=== PATIENT | male | born 1935 | race Caucasian/White ===

== ENCOUNTER 2016-07-08 01:42 | Day surgery (SDC) | payer MEDICARE ==
[2016-07-08] VITALS (10 sets, daily range): BP systolic 101–135; BP diastolic 53–89; PULSE 58–67; RESP 11–60; O2SAT 93–98
[~2016-07-08] VITALS: Ht 172.7 cm; Wt 92.0 kg
[~2016-07-08 01:42] MED LIST: ALBU8.5H4 IH; BECL8.7A5 IH; CALC500T3 PO; CLOP75TA3 PO; COLC0.6C3 PO; FLUO10TA PO; IPRA30SP8 NS; LEVO5TAB13 PO; LIP40 PO; LOSA25TA21 PO; METO50TA7 PO; METR55GE TOP; MV-M1TAB2 PO; POTA10CA42 PO; SPIR25TA3 PO; TORS20TA PO; UBID100C25 PO
[2016-07-08] MEDS ORDERED: 0.9% Sodium Chloride 1,000 ML IV PRN (07:19)
[2016-07-08] MEDS ORDERED: Vancomycin Inj 1,000 MG in IV Premix 1 EACH IV ONE (07:20)
--- NOTE | 2016-07-08 11:00 | NUR ---
ADMISSION NOTE MALE PT ADMITTED FOR ICD GENERATOR CHANGE. DISCUSSED PLAN OF CARE WITH PT AND . SEE ADMIT AND FLOW SHEET
[2016-07-08 11:37] LABS: BASOPHILS % (AUTO) 0.4 % (0-3); MONOCYTES % (AUTO) 8.5 % (4-12); Mean Corpuscular Hemoglobin 33.8 pg (27.0-35.0); Mean Corpuscular Volume 99.3 fL (81-100); NEUTROPHILS % (AUTO) 65.5 % (40-74); Platelet Count 194 bil/L (150-400)
[2016-07-08] MEDS ORDERED: TORS20TA3 PO (11:47)
[2016-07-08 12:01] LABS: INR 1.05 ratio
[2016-07-08] MEDS ORDERED: Vancomycin 1,000 mg Inj ONE (12:58)
[2016-07-08] MEDS ORDERED: Heparin 5,000 Units/500 mL NS Premix IV ONE (12:58)
[2016-07-08] MEDS ORDERED: Water for Injection 50 ML IV ONE (12:58)
[2016-07-08] MEDS ORDERED: Bupivacaine-MPF 0.5% 30 mL Inj ONE (12:58)
[2016-07-08] MEDS ORDERED: 0.9% Sodium Chloride 250 ML ONE (12:58)
[2016-07-08] MEDS ORDERED: Vancomycin 1,000mg/200 mL NS IV ONE (13:00)
[2016-07-08] MEDS ORDERED: fentaNYL-PF 50 mCg/mL 2 mL Inj ONE (13:21)
[2016-07-08] MEDS ORDERED: Ondansetron 2 mg/mL 2 mL Inj IVPUSH PRN (14:25)
[2016-07-08] MEDS ORDERED: 0.9% Sodium Chloride 1,000 ML IV SCH (14:25)
--- NOTE | 2016-07-08 14:30 | NUR ---
POST PROCEDURE NOTE RETURNED FROM PHARMACY DIRECTOR. SEE FLOW SHEET
--- NOTE | 2016-07-08 15:05 | OP ---
[address] [address] OPERATIVE REPORT PATIENT: DAYANARA PECK : 1935 MR#: [id number] ADMIT: 07/08/2016 JOB ID: [id number] DATE OF SURGERY: 07/08/2016 PREOPERATIVE DIAGNOSIS(ES): Implantable cardioverter defibrillator battery depletion. POSTOPERATIVE DIAGNOSIS(ES): Implantable cardioverter defibrillator battery depletion. PROCEDURES PERFORMED: Multilead implantable cardioverter defibrillator generator replacement. SURGEON: Gabriel Casarez MD, electrophysiology attending. ASSISTANTS: 1. Maryann Jones MD, interventional cardiology attending. 2. Carol . IMPLANTED DEVICE: Medtronic Amplia MRI pulse generator model LCGI5I9, serial #[id number]. EXPLANTED DEVICE: Medtronic Protecta RADIOLOGY SERVICES MANAGER-D model D798CRQ, serial #[id number]. CHRONIC DEVICES: 1. Right atrial lead Medtronic 5076, 52 cm, serial #[id number]. 2. RV lead Medtronic 6935, 58 cm, serial #[id number]. 3. LV lead Medtronic 4196, 88 cm, serial #[id number]. ANESTHESIA: Bolus dosing of Versed and fentanyl were utilized for appropriate level of sedation. INDICATIONS: The patient is a pleasant 80-year-old man with ischemic heart disease, bypass grafting, severe ischemic cardiomyopathy whose BiV ICD has reached KATHIE. After discussion of risks and benefits of generator replacement, he opted to proceed. PROCEDURAL DESCRIPTION: Following informed signed consent, the patient was taken to the EP laboratory in a fasting, nonsedated state, where he was prepped and draped in the usual sterile fashion. The left infraclavicular surgical scar was infiltrated with 40 cc of a 50/50 mixture of bupivacaine and lidocaine. Once adequate anesthesia had been achieved, a 3 cm incision was performed overlying the previous surgical scar. Dissection was carried down to the capsule, and the generator and leads were freed loose of adhesions. The pocket was copiously irrigated with antibiotic solution. The leads were disconnected from the generator and inspected. They were showed to be intact. The chronic leads were connected to a new generator. The leads were tested through the generator and showed excellent sensing, thresholds and impedances. The entire system was then replaced into the capsule. The incision was closed with running layers of absorbable suture. The wound was dressed with skin adhesive and a small dressing. At the end of the procedure, the needle, sponge and instrument counts were all correct. COMPLICATIONS: None. ESTIMATED BLOOD LOSS: Negligible. DEVICE MEASURED DATA: 1. Right atrial lead 3.8 mV, 513 ohms, 0.75 V at 0.4 msec. 2. RV lead 10.8 mV, integrated bipolar 323 ohms, 72 ohms, 0.5 V at 0.4 msec. 3. LV lead 456 ohms, 0.75 V at 0.4 msec. FINAL PROGRAM PARAMETERS: 1. DDD 60-130 beats per minute. 2. VF zone at 300 msec . 3. Fast VT via VF of 260 msec. 4. VT monitoring zone at 150 beats per minute. IMPRESSION: Successful biventricular implantable cardioverter defibrillator generator replacement. PLAN: 1. Recovery and discharge from the [facility]. 2. Doxycycline 100 mg p.o. daily x1 week. 3. Device Clinic in one week. 4. [facility] in six weeks. ATTENDING STATEMENT: Gabriel Casarez MD, electrophysiology attending, was present for and supervised/performed all aspects of this procedure.
--- NOTE | 2016-07-08 17:03 | NUR ---
[facility] DISCHARGE ASSUMED CARE OF PT AT 1600. DISCHARGE INSTRUCTIONS INCLUDING MEDICATIONS, F/U, POST SEDATION AND GENERATOR CHANGE INSTRUCTIONS WERE REVIEWED AND PT AND VERBALIZED UNDERSTANDING. RX WAS FAXED TO [facility] PER PT REQUEST AND HARD COPY WITH PT. IVS WERE DISCONTINUED AND PT WAS DISCHARGED AT 1655 WITH IN STABLE CONDITION.
== END 2016-07-08 23:59 | disposition home or self-care (01) ==
LOC: SOUO 01:42
PROVIDERS: ATTEND Internal Medicine Cardiovascular Disease
DX: Z45.02 Encounter for adjustment and management of automatic implantable cardiac defibrillator (principal); Z95.1 Presence of aortocoronary bypass graft; I25.5 Ischemic cardiomyopathy; I50.22 Chronic systolic (congestive) heart failure; I25.10 Atherosclerotic heart disease of native coronary artery without angina pectoris; I25.810 Atherosclerosis of coronary artery bypass graft(s) without angina pectoris; I35.1 Nonrheumatic aortic (valve) insufficiency; I37.1 Nonrheumatic pulmonary valve insufficiency; E11.9 Type 2 diabetes mellitus without complications; I10 Essential (primary) hypertension; I27.2 Other secondary pulmonary hypertension; Z79.02 Long term (current) use of antithrombotics/antiplatelets; Z86.73 Personal history of transient ischemic attack (TIA), and cerebral infarction without residual deficits
CPT/HCPCS: 33264; 36415; 80048; 85025; 85610; 93005; 99152; 99153; C1769; C1882; J1644; J2250; J3010; J3370; J7050

== ENCOUNTER 2016-07-22 00:56 | Day surgery (SDC) | payer MEDICARE ==
[~2016-07-22] VITALS: Ht 172.7 cm; Wt 90.0 kg
[2016-07-22] VITALS (18 sets, daily range): BP systolic 104–129; BP diastolic 60–90; PULSE 63–120; RESP 12–20; O2SAT 95–98
[~2016-07-22 00:56] MED LIST changes: -COLC0.6C3 PO; -IPRA30SP8 NS; -LEVO5TAB13 PO; -TORS20TA PO; +TORS20TA3 PO
--- NOTE | 2016-07-22 08:15 | NUR ---
ADMISSION NOTE MALE PT ADMITTED FOR SHADE/CARDIOVERSION DISCUSSED PLAN OF CARE WITH PT AND FAMILY. SEE ADMIT AND FLOW SHEET
--- NOTE | 2016-07-22 09:00 | NUR ---
DR SHAFFER HERE. SEE SEDATION FLOW SHEET
[2016-07-22] MEDS ORDERED: 0.9% Sodium Chloride 100 ML ONE (09:02)
[2016-07-22] MEDS ORDERED: fentaNYL-PF 50 mCg/mL 2 mL Inj ONE ×2 (09:04→14:54)
[2016-07-22] MEDS ORDERED: Flumazenil 0.1 mg/mL 5 mL Inj IV ONE (09:04)
[2016-07-22] MEDS ORDERED: Methohexital 10 mg/mL 50 mL Inj ONE (09:07)
[2016-07-22 09:10] LABS: BASOPHILS % (AUTO) 0.5 % (0-3); EOSINOPHILS % (AUTO) 1.3 % (0-5); MONOCYTES % (AUTO) 8.7 % (4-12); Mean Corpuscular Hemoglobin 33.3 pg (27.0-35.0); Mean Corpuscular Volume 97.6 fL (81-100); NEUTROPHILS % (AUTO) 64.5 % (40-74); Platelet Count 198 bil/L (150-400)
--- NOTE | 2016-07-22 09:45 | NUR ---
PROCEDURE COMPLETE. PT ALERT. MD HERE. SEE COMPUTER FLOW SHEET
[2016-07-22] MEDS ORDERED: COLC0.6T55 PO (11:50)
[2016-07-22] MEDS ORDERED: LEVO5TAB13 PO (11:51)
[2016-07-22] MEDS ORDERED: DABI150C PO (11:52)
--- NOTE | 2016-07-22 11:53 | DRSVH ---
[facility] [address] [place] [address] Echocardiogram Report Name: DAYANARA PECK MStudy Date: 07/22/2016 Height: 68 in Hospital Exam Location: [facility] Weight: 208 lb Gender: Male BSA: 2.1 m2 : 1935 Age: 80 yrs BP: 114/81 mmHg Reason For Study: A-FLUTTER Ordering Physician: Performed By: Yvonne Burroughs Referring Physician: Ezra Reyez Interpretation Summary Left ventricular systolic function is severely reduced. There is pacemaker artifact noted in the right atrium. No thrombus is detected in the left atrial appendage. There is no Doppler evidence for an interatrial shunt. There is mild to moderate mitral regurgitation. There is prolapse of the posterior mitral valve leaflet(s). The aortic valve is slightly calcified. There is moderate aortic regurgitation. There is mild tricuspid regurgitation. Procedure: Informed consent for Transesophageal Echocardiogram, and use of a contrast agent as needed, was obtained prior to the procedure. The patient was brought to the [facility] in a fasting state. An intravenous line was placed. A topical anesthetic agent was used for oropharangeal anesthesia. A bite block was inserted. The transesophageal probe was passed without difficulty. A 2D transesophageal echocardiogram with spectral and color flow Doppler was performed. The usual views were obtained; basal, mid-esophageal, transgastric and aortic views. The patient tolerated the procedure well without evidence of orophangeal or esophageal trauma. The patient was in atrial flutter during the exam. There were no complications. Left Ventricle: Left ventricular systolic function is severely reduced. Right Ventricle: The right ventricle is not well visualized. Atria: The left atrium is mildly dilated. No thrombus is detected in the left atrial appendage. The right atrium is mildly dilated. There is pacemaker artifact noted in the right atrium. There is no Doppler evidence for an interatrial shunt. Mitral Valve: There is prolapse of the posterior mitral valve leaflet(s). There is mild to moderate mitral regurgitation. There are multiple regurgitant jets present. Aortic Valve: The aortic valve is trileaflet. The aortic valve is slightly calcified. There is moderate aortic regurgitation. Tricuspid Valve: The tricuspid valve is not well visualized, but is grossly normal. There is mild tricuspid regurgitation. Pulmonic Valve: The pulmonic valve is not well visualized. Doppler Measurements & Calculations AI apr slope: 273.7 cm/sec AI P1/2t: 491.5 msec Electronically signed by: Minor Hankins on Reading Physician:07/22/2016 11:52 AM
[2016-07-22] MEDS ORDERED: 0.9% Sodium Chloride 1,000 ML IV SCH (12:05)
[2016-07-22] MEDS ORDERED: 0.9% Sodium Chloride 1,000 ML IV ONE (12:26)
[2016-07-22] MEDS ORDERED: Heparin 1,000 Units/500 mL NS Premix IV ONE (14:19)
[2016-07-22] MEDS ORDERED: Heparin 5,000 Units/500 mL NS Premix IV ONE (14:19)
--- NOTE | 2016-07-22 14:48 | NUR ---
TO PRODUCTION LEADER
[2016-07-22] MEDS ORDERED: Heparin 1,000 Unit/mL 10 mL Inj ONE (15:15)
[2016-07-22] MEDS ORDERED: 0.9% Sodium Chloride 1,000 ML ONE (15:15)
[2016-07-22] MEDS ORDERED: Sodium Chloride LOK Flush 10 mL Syringe IVFLUSH SCH (16:30)
[2016-07-22] MEDS ORDERED: ASPI-973 PO (17:56)
[2016-07-22] MEDS ORDERED: CALC-952 PO (17:56)
[2016-07-22] MEDS ORDERED: ALBU8.5H2 INHALATION (17:56)
[2016-07-22] MEDS ORDERED: ISOS30TA8 PO (17:57)
--- NOTE | 2016-07-22 21:10 | NUR ---
[facility] Care assumed of patient on return from feed mill lab technician at [address] [facility] room 2. at bedside. No bleeding or hematoma at right groin manual hold. Pedal pulses present pr doppler. Patient denies pain throughout recovery. Prior to discharge taking PO, ambulate and void. Instructions reviewed with patient, and daughter, written information given and questions answered. Home with at 2110.
--- NOTE | 2016-07-22 23:05 | DI95 ---
[address] [address] INTERVENTIONAL CARDIAC CATHETERIZATION PATIENT: DAYANARA PECK : 1935 MR#: [id number] ADMIT: 07/22/2016 JOB ID: [id number] DATE OF PROCEDURE: DIAGNOSIS: Atrial flutter. PROCEDURE: Transesophageal echocardiography guided cardioversion. This gentleman had a SHADE which did not show any evidence of a left atrial thrombus. We decided to pace terminate this patient's atrial flutter. The patient was paced rapidly via his pacemaker. This led to successful termination of his tachycardia. The patient was in sinus rhythm and has maintained sinus rhythm. He is to continue his anticoagulation.
--- NOTE | 2016-07-22 23:11 | CS94 ---
[address] [address] DIAGNOSTIC CARDIAC CATHETERIZATION PATIENT: DAYANARA PECK : 1935 MR#: [id number] ADMIT: 07/22/2016 JOB ID: [id number] SERVICE DATE: 07/22/2016 PROCEDURE: 1. Selective right and left coronary angiography. 2. Saphenous vein angiography. 3. BHARDWAJ angiography. 4. Aortogram. 5. Left heart catheterization. INDICATION: Recurrent chest pain in a gentleman with known history of coronary artery disease and congestive heart failure. PROCEDURAL DETAILS: The procedure was done via right femoral approach using a 6-Faroese system. ANGIOGRAPHIC FINDINGS: 1. Left main distally has a 40-50% lesion. 2. LAD past the 1st septal branch in its mid segment has an 80% lesion. This lesion seems to have progressed. Distally past the 2nd septal branch, the LAD is totally occluded. 3. Circumflex is nondominant. It is totally occluded proximally. 4. Ramus intermedius is a moderate-caliber vessel and is patent. 5. Right coronary artery is dominant. It is totally occluded proximally. 6. Saphenous vein angiography: Saphenous vein to diagonal is patent. It fills the LAD retrogradely. The LAD itself is a modest-caliber vessel free of any critical disease. 7. Saphenous vein graft to the circumflex is a degenerated graft with significant ectasia distally. Overall the graft itself is patent. 8. Saphenous vein graft to the ramus is also patent. 9. Subclavian angiography revealed a 50% lesion in the proximal subclavian artery. There is no gradient across this lesion. 10. BHARDWAJ angiography revealed an atretic BHARDWAJ which is totally occluded in its mid segment. 11. Left heart catheterization revealed an LVEDP of 20 with no gradient upon pullback. 12. An aortogram was performed to assess his AI. The patient has 2+ AI. IMPRESSION: In summary, this gentleman is adequately revascularized. We need to up-titrate his medical management.
== END 2016-07-22 23:59 | disposition home or self-care (01) ==
LOC: SOUO 00:56 → EDSTATUS 13:07 → SOUO 23:59
PROVIDERS: ATTEND Internal Medicine Cardiovascular Disease
DX: I25.810 Atherosclerosis of coronary artery bypass graft(s) without angina pectoris (principal); I25.10 Atherosclerotic heart disease of native coronary artery without angina pectoris; I25.82 Chronic total occlusion of coronary artery; I48.92 Unspecified atrial flutter; I08.0 Rheumatic disorders of both mitral and aortic valves
CPT/HCPCS: 36415; 80048; 85025; 92960; 93005; 93459; 93567; 99152; 99153; C1769; C8925; J1644; J2250; J3010; J7030; Q9967

== ENCOUNTER 2016-11-08 01:07 | Day surgery (SDC) | payer MEDICARE ==
[~2016-11-08] VITALS: Ht 172.7 cm; Wt 91.0 kg
[~2016-11-08 01:07] MED LIST changes: +ALBU8.5H2 INHALATION; -ALBU8.5H4 IH; -BECL8.7A5 IH; -CALC500T3 PO; +CLOP75TA28 PO; -CLOP75TA3 PO; +COLC0.6T55 PO; +ISOS60TA2 PO; +LORA0.5T PO; -MV-M1TAB2 PO; +WARF5TAB7 PO
[2016-11-08 10:26] VITALS: BP 112/94; PULSE 86; RESP 18; O2SAT 97
[2016-11-08] MEDS ORDERED: METO-274 PO (10:39)
--- NOTE | 2016-11-08 10:40 | NUR ---
Admit [facility] ADmitted to [facility] about 0945. VSS. Denies pain. Tele appears Vpaced with underlying Afib. INR 2.4. IV started. Procedure and recovery reviewed and verbalizes understanding. Awaiting MD.
[2016-11-08] MEDS ORDERED: Atropine 1 mg/10 mL (Code) Syringe ONE (10:49)
[2016-11-08] MEDS ORDERED: Flumazenil 0.1 mg/mL 5 mL Inj IV ONE (10:49)
[2016-11-08] MEDS ORDERED: Methohexital 10 mg/mL 50 mL Inj ONE (10:49)
--- NOTE | 2016-11-08 11:49 | NUR ---
Procedure changed Dr. Hankins ordered EKG and stated if pt. in Aflutter they would pace him out of it. EKG obtained and Dr. Hankins in to see patient. Pt. in slow flutter. Carlton Andersonto come and do procedure around noon. Pt. informed.
[2016-11-08] MEDS ORDERED: METO-272 PO ×2 (12:20)
--- NOTE | 2016-11-08 14:08 | NUR ---
Procedure/Discharge Carlton ASTUDILLO and Dr. Hankins in about noon and non-invasively paced pt. out of Aflutter. stated ok for discharge and instructions left for f/u and meds. See discharge instructions. Reviewed with pt. and verbalizes understanding. IV discontinued intact. Discharged ambulatory with and all belongings at 1235.
--- NOTE | 2016-11-08 18:15 | DI96 ---
[address] [address] PERIPHERAL CATHETERIZATION/INTERVENTION REPORT PATIENT: DAYANARA PECK : 1935 MR#: [id number] ADMIT: 11/08/2016 JOB ID: [id number] PROCEDURE: Overdrive pacing. INDICATION: Atrial flutter. PROCEDURAL DETAILS: The patient underwent overdrive pacing for his atrial flutter. He converted at a cycle length of 180 msec. A short burst was given. The patient is now in sinus rhythm. No complications. RECOMMENDATIONS: If the patient reverts back to atrial flutter, I would start him either on flecainide or sotalol. This will obviously have to be done as an inpatient. The patient is aware of this. He will call our office if he starts noticing AFib or flutter.
== END 2016-11-08 23:59 | disposition home or self-care (01) ==
LOC: SOUO 01:07
PROVIDERS: ATTEND Internal Medicine Cardiovascular Disease
DX: I48.92 Unspecified atrial flutter (principal); I48.1 Persistent atrial fibrillation; Z79.01 Long term (current) use of anticoagulants; I12.9 Hypertensive chronic kidney disease with stage 1 through stage 4 chronic kidney disease, or unspecified chronic kidney disease; N18.9 Chronic kidney disease, unspecified; Z86.73 Personal history of transient ischemic attack (TIA), and cerebral infarction without residual deficits; I50.9 Heart failure, unspecified; E11.9 Type 2 diabetes mellitus without complications; Z95.810 Presence of automatic (implantable) cardiac defibrillator